=== PATIENT | male | born 2000 | race Caucasian/White ===

== ENCOUNTER 2023-08-18 16:30 | Outpatient (CLI) | payer BC | END 2023-08-18 16:31 | disposition home or self-care (01) | LOC: SCSRAD 16:30 | PROVIDERS: ATTEND Nurse Practitioner Family | DX: S69.92XA Unspecified injury of left wrist, hand and finger(s), initial encounter (principal); S62.002A Unspecified fracture of navicular [scaphoid] bone of left wrist, initial encounter for closed fracture ==